=== PATIENT | male | born 1990 | race Two or more races ===

== ENCOUNTER 2016-10-05 13:48 | Emergency (ER) | payer SELFPAY ==
[2016-10-05 13:55] VITALS: BP 159/103; PULSE 87; RESP 18; TEMP 97.5; O2SAT 95
[2016-10-05] MEDS ORDERED: SULFAMETHOX/TMP 800/160 MG 1 TAB PO ONE (14:05)
[2016-10-05] MEDS ORDERED: CEPHALEXIN 500 MG CAP PO ONE (14:05)
--- NOTE | 2016-10-05 14:07 | EDPHY ---
H & P Time Seen by Provider: 10/05/16 13:59 HPI/ROS: CHIEF COMPLAINT: Possible infection left plantar foot HISTORY OF PRESENT ILLNESS: 26-year-old male history of controlled diabetes with complaining of 1 week of left plantar forefoot lateral aspect tender lesion. No known known trauma. Tender to palpation. No lymphangitic streaking. No fever no chills. No flu-like symptoms. Able bear weight albeit with pain. PHYSICAL EXAM (Prior to examination, patient consented to physical exam, hands were washed and my usual and customary physical exam procedures followed) 1) GENERAL: Well-developed, well-nourished, alert and oriented. Appears to be in no acute distress. 2) HEAD: Normocephalic 3) HEENT: sclera anicteric 4) LUNGS: Breathing comfortably. 5) SKIN: left foot plantar aspect forefoot, laterally he has a tender lesion which is indurated and fluctuant centrally. There is no lymphangitic streaking. There is no crepitus. Compartments are soft Smoking Status: Never smoked Constitutional: Initial Vital Signs Temperature (C) 36.4 C 10/05/16 13:52 Heart Rate 87 10/05/16 13:52 Respiratory Rate 18 10/05/16 13:52 Blood Pressure 159/103 H 10/05/16 13:52 O2 Sat (%) 95 10/05/16 13:52 O2 Delivery Mode Room Air Allergies/Adverse Reactions: No Known Allergies Allergy (Unverified 10/05/16 13:51) Home Medications: Medication Instructions Recorded Cephalexin [Keflex] 500 mg PO QID 10 Days 10/05/16 Hydrocodone/APAP 5/325 [[place] 1 tab PO Q6 PRN #15 tab 10/05/16 5/325 (RX)] Sulfamethox/Tmp 800/160 mg 1 tab PO BID@1000,2200 10 Days 10/05/16 [Bactrim Ds] MDM/Departure - MDM Diagnostics: XLeft Foot, Three Views. HISTORY: Foot pain at the plantar aspect of the third and fourth and fifth metatarsophalangeal joints. FINDINGS: Normal mineralization and alignment. No evidence for acute fracture or dislocation. Mild soft tissue swelling is seen dorsal to the metatarsophalangeal joint region. No evidence for radiopaque foreign body. No evidence for osseous erosion. IMPRESSION: No evidence for radiopaque foreign body or acute fracture. Dictated By: Jeff Garcia MD Images reviewed by myself Procedures: Procedure: Abscess drainage. The patient's Patient's suspectedabscess was located on the plantar aspect of the forefoot . Initial needle aspiration was positive for purulent material. Subsequently, I obtained verbal consent from the patient to drain the abscess who was informed about the possibility of bleeding and pain. The abscess was incised with a 11. scalpel and a mild amount of purulent drainage was expressed. I irrigated the wound . The patient tolerated the procedure well. The procedure was performed by myself. Procedure: Splint A postop shoe splint was applied by ER cable technician. After application of the splint I returned and re-examined the patient. The splint was adequately immobilizing the joint and distal to the splint the patient's circulation and sensation were intact. Medications Given: Discontinued Medications Cephalexin HCl (Keflex) 500 mg PO EDNOW ONE PRN Reason: Protocol Stop: 10/05/16 14:06 Last Admin: 10/05/16 14:09 Dose: 500 mg Trimethoprim/Sulfamethoxazole (Bactrim Ds) 1 ea PO EDNOW ONE PRN Reason: Protocol Stop: 10/05/16 14:06 Last Admin: 10/05/16 14:09 Dose: 1 ea ED Course/Re-evaluation: No lymphangitic streaking. Doubt necrotizing fasciitis. Does have a history of diabetes. Importance of follow-up has been stressed on numerous instances. Started him on dual therapy with Bactrim and Keflex. Purulent material was aspirated and sent to laboratory for evaluation, culture and sensitivity. Recommend he follow up with Podiatry on Saturday. Today is Saturday. Recommend elevation. My strict Usual customary wound precautions and instructions provided. He feels comfortable being discharged. - Depart Disposition: Home, Routine, Self-Care Clinical Impression: Wound, open, foot Qualifiers: Encounter type: initial encounter Laterality: left Qualifier Code: (S91.302A) Unspecified open wound, left foot, initial encounter Condition: Good Instructions: Acute Wound Care (ED), Wound Infection (ED) Additional Instructions: Return to the ER if you develop redness, swelling, discharge, warmth to the wound, red streaks going up your arm , or any other symptoms that concern you. Prescriptions: Sulfamethox/Tmp 800/160 mg [Bactrim Ds] 1 tab PO BID@1000,2200 10 Days Cephalexin [Keflex] 500 mg PO QID 10 Days Hydrocodone/APAP 5/325 [[place] 5/325 (RX)] 1 tab PO Q6 PRN #15 tab PRN Reason: Pain, Severe Referrals: Leonel Chapman MD [Doctor of Podiatric Medicine] - 10/08/16
--- NOTE | 2016-10-05 14:39 | DX ---
Left Foot, Three Views. HISTORY: Foot pain at the plantar aspect of the third and fourth and fifth metatarsophalangeal joints . FINDINGS: Normal mineralization and alignment. No evidence for acute fracture or dislocation. Mild so ft tissue swelling is seen dorsal to the metatarsophalangeal joint region. No evidence for radiopaque foreign body. No evidence for osseous erosion. IMPRESSION: No evidence for radiopaque foreign body or acute fracture.
== END 2016-10-05 15:40 | disposition home or self-care (01) ==
PROC: 0H9NXZZ Drainage of Left Foot Skin, External Approach (ICD-10-PCS; principal; 2016-10-05)
DX: S91.302A Unspecified open wound, left foot, initial encounter (principal); X58.XXXA Exposure to other specified factors, initial encounter
CPT/HCPCS: L3260